=== PATIENT | male | born 1965 | race Native Hawaiian/Other Pacific Islander ===

== ENCOUNTER 2018-01-30 12:20 | Outpatient (CLI) | payer OTHER | END 2018-01-30 19:21 | disposition home or self-care (01) | LOC: RAD 12:20 | DX: M54.5 Low back pain (principal) ==

== ENCOUNTER 2018-05-08 08:29 | Outpatient (CLI) | payer OTHER | END 2018-05-08 19:47 | disposition home or self-care (01) | LOC: RAD 08:29 | DX: R06.09 Other forms of dyspnea (principal) | CPT/HCPCS: 93005 ==